=== PATIENT | female | born 1990 ===

== ENCOUNTER 2016-06-19 22:10 | Emergency (ER) | payer SELFPAY ==
[~2016-06-19] VITALS: Ht 162.6 cm; Wt 65.0 kg
[2016-06-19 22:19] VITALS: BP 115/75; PULSE 78; RESP 16; O2SAT 100
== END 2016-06-19 22:30 | disposition left against medical advice (07) ==
LOC: SED 22:10
DX: Z53.21 Procedure and treatment not carried out due to patient leaving prior to being seen by health care provider (principal)